=== PATIENT | female | born 2000 | race Caucasian/White ===

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

== ENCOUNTER 2020-03-14 16:12 | Emergency (ER) | payer OTHER ==
--- OUTSIDE RECORDS SUMMARY | 2020-03-14 16:23 | XMS REPORT ---
:2000 Author Organization [facility] t Address [address] [place] [address] Care Team Providers Name Role Phone Delma GABRIEL, Asher Attending Clinician 1, Lab Attending Clinician Unavailable Doctor Unassigned, Name Attending Clinician Unavailable Ivan GABRIEL, Cam Attending Clinician Problems This patient has no known problems. Allergies, Adverse Reactions, Alerts This patient has no known allergies or adverse reactions. Medications This patient has no known medications. Procedures This patient has no known procedures. Encounters Start End Encounter Admission Attending Care Care Encounter Source Date/Time Date/Time Type Type Clinicians Facility Department ID 2020-03-14 2020-03-14 Telephone Delma NVROSA [id number] 00:00:00 00:00:00 [email or web address] [id number] [place] [id number] [facility] [phone] [place] [address] 2020-03-10 2020-03-10 Intermediate Card Tender 1, [facility] [id number] 12:00:08 12:15:08 Visit [place] [id number] [place] [id number] [place] [id number] 2020-03-10 2020-03-10 Orders Doctor DAVID [id number] 00:00:00 00:00:00 Only Unassigned, SYEDA [id number] [place] [facility] [id number] 2020-02-24 2020-02-24 Telephone Roseann Love [facility] [id number] 00:00:00 00:00:00 Cam [place] [id number] [place] [id number] [facility] [id number] [address] 2020-02-23 2020-02-23 Office Roseann Love [facility] [id number] 14:56:11 15:32:21 Visit Cam Franca [id number] [place] [id number] Profess[facility] [phone] [address] 2020-02-23 2020-02-23 Orders Doctor FRANKIE [id number] 00:00:00 00:00:00 Only Unassigned, SYEDA [id number] [place] [facility] [id number] 2020-01-30 2020-01-30 Patient Delma [facility] [id number] 00:00:00 00:00:00 Secure Msg [facility] [id number] [place] [id number] [facility] [phone] [place] [address] [address] Results This patient has no known results.
--- OUTSIDE RECORDS SUMMARY | 2020-03-14 16:24 | XMS REPORT | Summary of Care ---
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 (1 - 2011 Tdap) HPV VACCINES (1 - Female 2011 2-dose series) WELL CARE VISIT: 12-21 YEARS 12/09/2017 12/09/2016 (yearly) CHLAMYDIA SCREENING 10/10/2020 10/10/2019, 06/15/2019 INFLUENZA VACCINE Completed 07/20/2019 MENINGOCOCCAL VACCINE Aged Out No longer eligible based on patient's age to complete this to pic PNEUMOCOCCAL 0-64 YEARS Aged Out No longe r eligible based COMBINED SERIES on patient's age to complete this to pic documented as of this encounter Results Not on filedocumented in this encounter Visit Diagnoses Diagnosis Persistent headaches - Primary Headache Hair loss Alopecia, unspecified Fatigue, unspecified type documented in this encounter Insurance Payer Benefit Plan / Subscriber ID Effective Phone Address T e Group Dates [facility] [id number] 2018-Pres HMO /PPO/POS [facility] ent SHARED SHARED SERVICE SERVICES [facility] MEDICAID OF xxxxxxxxx 2019-Pres [phone] [place] ent [phone] [place] [address] documented as of this encounter Advance Directives Name Relationship Healthcare Agent Relationship Co mmunication Luis Penelope Mother Primary healthcare agent [phone] (Mobile)2017 (Home)[email or web address] Bijan Negrete Father Primary healthcare agent [phone])2016 (Home)[email or web address]
--- OUTSIDE RECORDS SUMMARY | 2020-03-14 16:24 | XMS REPORT | Summary of Care ---
:2000 Author Organization [facility] - Health Address [address] [place] [address] Care Team Providers Name Role Phone Asher Nguyễn MD Primary Care Provider Encounter Details Date Type Department Care Team Description 02/08/2020 Orders Only [facility] Doctor Unassigned, No [address] [facility] Name [place], [place] [id number] [place] [phone] Allergies No Known Allergiesdocumented as of this encounter (statuses as of 02/08/2020) Medications Medication Sig Dispensed Refills Start Date End Date Status vit Take 1 Packet 30 Each 6 06/15/2019 Ac tive 31-vljp-vrmdf-dha by mouth daily. (SELECT-OB + DHA) 29 [...] as of this encounter (statuses as of 02/08/2020) Active Problems Problem Noted Date Persistent headaches 02/07/2020 Hair loss 02/07/2020 Fatigue, unspecified type 02/07/2020 [facility]born [facility], of [place] , [facility] 11/01/2019 delivery 40 weeks gestation of 10/31/2019 Encounter for elective induction of labor 10/31/2019 Medication exposure during first trimester of pregnanc y 07/20/2019 History of depression 07/20/2019 History of anxiety 07/20/2019 Rubella non-immune status, antepartum 06/16/2019 Overview: Address in the . High risk , antepartum 06/15/2019 Low serum HDL 12/11/2016 documented as of this encounter (statuses as of 02/08/2020) Resolved Problems Problem Noted Date Resolved Date 39 weeks gestation of 09/14/2019 10/31/19 20 Primigravida in second trimester 06/15/2019 019 High risk teen in second trimester 06/15/2019 09/14/2019 documented as of this encounter (statuses as of 02/08/2020) Immunizations Name Administration Dates Next Due Influenza [...] Signs Not on filedocumented in this encounter Plan of Treatment Date Type Specialty Care Team Description 02/08/2020 Shift Supervisor Rn Visit Phlebotomy Dejan Nguyễn MD [address] [place] [phone] Pob, Adc Lab Main 02/23/2020 Office Visit Obstetrics & Gynecology David Love MD [address] [place] [phone] 05/31/2020 Office Visit Obstetrics & Gynecology Krystal Rodriguez PA-C [address] [place] [phone] Health Maintenance Due Date Last Done Comments [...] to pic documented as of this encounter Procedures Procedure Name Priority Date/Time Associated Diagnosis Comme nts ASSIGNMENT OF BENEFITS Routine 02/08/2020 3:58 PM CDT documented in this encounter Results Not on filedocumented in this encounter Insurance Payer Benefit Plan / Subscriber ID Effective Phone Address T e Group Dates [facility] [id number] 2018-Pres HMO /PPO/POS [facility] ent SHARED SHARED SERVICE SERVICES [facility] MEDICAID OF xxxxxxxxx 2019-Pres [phone] Medi caid [place] ent [id number] [place] [address] documented as of this encounter Advance Directives Name Relationship Healthcare Agent Relationship Co mmunication Luis Negrete Mother Primary healthcare agent [phone])[phone] (Home)[email or web address] iBjan Negrete Father Primary healthcare agent [phone])[phone] (Home)[email or web address]
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
--- OUTSIDE RECORDS SUMMARY | 2020-03-14 16:25 | XMS REPORT | Summary of Care ---
:2000 Author Organization [facility] Address [address] [place] [address] Care Team Providers Name Role Phone Asher Nguyễn MD Primary Care Provider Reason for Visit Reason Comments LAB WORK Auth/Cert Status Reason Specialty Diagnoses / Procedures Referred By James rockact Referred To Contact Phlebotomy Diagnoses Persistent headaches Hair loss Adc Pob Lab Draw Procedures ANTI-NUCLEAR ANTIBODY SCREEN DEHYDROEPIANDROSTERONE SULFATE FOLLICLE STIMULATING HORMONE Professional Office Building [address] , [address] [place] [address] Phone: Fax: Encounter Details Date Type Department Care Team Description 02/08/2020 Tractor Technician Visit [facility] Dejan Nguyễn MD [address] [place] [address] [place] [address] Hair loss; Professional Office Pob, Adc Lab Main Persistent headaches; Building Phlebotomy Fatigue, unspecified type Lab Professional Office Building [address] , [address] [place] [address] Allergies No Known Allergiesdocumented as of this encounter (statuses as of 02/08/2020) Medications Medication Sig Dispensed Refills Start Date End Date Status vit Take 1 Packet 30 Each 6 06/15/2019 Ac tive 38-qnub-bvyje-dha by mouth daily. (SELECT-OB + DHA) 29 [...] Liveborn , of [place] , born in [facility] by vaginal 11/01/2019 delivery 40 weeks [...] Visit Obstetrics & Gynecology David Love MD [address] [place] [address] [place] [address] 15 05/31/2020 Office Visit Obstetrics & Gynecology Krystal Rodriguez PA-C [address] [address] [phone] Name Type Priority Associated Diagnoses Date/Ti me LUTEINIZING HORMONE SERUM LAB Routine Hair loss 4:12 PM CDT THYROID PEROXIDASE (TPO) AB LAB Routine Per sistent headaches 02/08/2020 4:12 PM Hair loss CDT Fatigue, unspecified type FREE T4 LAB Routine Persistent heada ches 02/08/2020 4:12 PM Hair loss CDT Fatigue, unspecified type FREE T3 LAB Routine Persistent heada ches 02/08/2020 4:12 PM Hair loss CDT Fatigue, unspecified type TESTOSTERONE LAB Routine Hair loss 02/08/2020 4:1 2 PM CDT PROLACTIN LAB Routine Hair loss 02/08/2020 4:1 2 PM CDT THYROGLOBULIN AB LAB Routine Persistent hea daches 02/08/2020 4:12 PM Hair loss CDT Fatigue, unspecified type FOLLICLE STIMULATING HORMONE LAB Routine Hair loss 02/08/2020 4:12 PM CDT DEHYDROEPIANDROSTERONE SULFATE LAB Routine Hair loss 02/08/2020 4:12 PM CDT ANTI-NUCLEAR ANTIBODY SCREEN LAB Routine Per sistent headaches 02/08/2020 4:12 PM Hair loss CDT Fatigue, unspecified type CBC WITH DIFF LAB Routine Persistent heada ches 02/08/2020 4:10 PM Hair loss CDT Fatigue, unspecified type COMP. METABOLIC PANEL (35242) LAB Routine Pe rsistent headaches 02/08/2020 4:10 PM Hair loss CDT Fatigue, unspecified type THYROID STIMULATING HORMONE LAB Routine Pers istent headaches 02/08/2020 4:10 PM Hair loss CDT Fatigue, unspecified type GLYCOSYLATED HEMOGLOBIN (A1C) LAB Routine Pe rsistent headaches 02/08/2020 4:10 PM Fatigue, unspecified CDT type VITAMIN B12, LEVEL LAB Routine Hair loss 02/08/2020 4:10 PM Fatigue, unspecified CDT type MAGNESIUM LAB Routine Fatigue, unspecified 020 4:10 PM type CDT FOLATE LAB Routine Hair loss 02/08/2020 4:10 PM Fatigue, unspecified CDT type IRON PANEL LAB Routine Persistent heada ches 02/08/2020 4:10 PM Hair loss CDT Fatigue, unspecified type FERRITIN SERUM LAB Routine Persistent heada ches 02/08/2020 4:10 PM Hair loss CDT Fatigue, unspecified type CBC WITH DIFFERENTIAL LAB Routine Persistent headaches 02/08/2020 4:10 PM Hair loss CDT Fatigue, unspecified type Health Maintenance Due Date Last Done [...] filedocumented in this encounter Visit Diagnoses Diagnosis Hair loss Alopecia, unspecified Persistent headaches Headache Fatigue, unspecified type documented in this encounter Insurance Payer Benefit Plan / Subscriber ID Effective Phone Address T e Group Dates [facility] [id number] 2018-Pres HMO /PPO/POS [facility] ent SHARED SHARED SERVICE SERVICES [facility] MEDICAID OF xxxxxxxxx 2019-Pres [phone] Medi ca[address] [place] ent [id number] [place] [address] documented as of this encounter Advance Directives Name Relationship Healthcare Agent Relationship Co mmunication Luis Penelope Mother Primary healthcare agent [phone] (Home)[email or web address] Bijan Negrete Father Primary healthcare agent [phone] (Home)[email or web address]
--- OUTSIDE RECORDS SUMMARY | 2020-03-14 16:25 | XMS REPORT | Summary of Care ---
:2000 Author Organization [facility] Address [address] [place] [address] Care Team Providers Name Role Phone Asher Nguyễn MD Primary Care Provider Encounter Details Date Type Department Care Team Description 02/09/2020 Patient Secure [facility] Pediatric Adolph Nguyễn, and Adult Primary Care- MD Schulte [address] [facility] , [place], [place] [address] [address] [place] [address] [phone] Allergies No Known Allergiesdocumented as of this encounter (statuses as of 02/09/2020) Medications Medication Sig Dispensed Refills Start Date End Date Status vit Take 1 Packet 30 Each 6 06/15/2019 Ac tive 99-ywft-uvanc-dha by mouth daily. (SELECT-OB + DHA) 29 [...] as of this encounter (statuses as of 02/09/2020) Active Problems Problem Noted Date Persistent headaches 02/07/2020 Hair loss 02/07/2020 Fatigue, unspecified type 02/07/2020 Liveborn infant, of hayden , [facility] by vaginal 11/01/2019 delivery 40 weeks gestation of 10/31/2019 Encounter for elective induction of labor 10/31/2019 Medication exposure during first trimester of pregnanc y 07/20/2019 History of depression 07/20/2019 History of anxiety 07/20/2019 Rubella non-immune status, antepartum 06/16/2019 Overview: Address in the . High risk , antepartum 06/15/2019 Low serum HDL 12/11/2016 documented as of this encounter (statuses as of 02/09/2020) Resolved Problems Problem Noted Date Resolved Date 39 weeks gestation of 09/14/2019 10/31/19 20 Primigravida in second trimester 06/15/2019 019 High risk teen in second trimester 06/15/2019 09/14/2019 documented as of this encounter (statuses as of 02/09/2020) Immunizations Name Administration Dates Next Due Influenza [...] Visit Obstetrics & Gynecology David Love MD [address] [place] [address] 15 05/31/2020 Office Visit Obstetrics & Gynecology Krystal Rodriguez PA-C [address] [place] [address] [phone] Health Maintenance Due Date Last Done [...] on patient's age to complete this to [facility] documented as of this encounter Results Not on filedocumented in this encounter Insurance Payer Benefit Plan / Subscriber ID Effective Phone Address T e Group Dates [facility] [id number] 2018-Pres HMO /PPO/POS [facility] ent SHARED SHARED SERVICE SERVICES [facility] MEDICAID OF xxxxxxxxx 2019-Pres [phone]i caid [place] ent [id number] [place] [address] documented as of this encounter Advance Directives Name Relationship Healthcare Agent Relationship Co mmunication Luis Negrete Mother Primary healthcare agent [phone])[phone] (Home)[email or web address] Bijan Negrete Father Primary healthcare agent [phone])[phone] (Home)[email or web address]
--- OUTSIDE RECORDS SUMMARY | 2020-03-14 16:26 | XMS REPORT | Summary of Care ---
:2000 Author Organization [facility] - [facility] Address [address] [place] [address] Care Team Providers Name Role Phone Asher Nguyễn MD Primary Care Provider Encounter Details Date Type Department Care Team Description 02/09/2020 Patient Secure [facility] Pediatric Adolph Nguyễn, and Adult Primary Care- MD Schulte [address] [facility] , [place], [place] [address] [address] [place] [address] [phone] Allergies No Known Allergiesdocumented as of this encounter (statuses as of 02/09/2020) Medications Medication Sig Dispensed Refills Start Date End Date Status vit Take 1 Packet 30 Each 6 06/15/2019 Ac tive 28-vqof-ukoqu-dha by mouth daily. (SELECT-OB + DHA) 29 [...] infant, of hayden , born in [facility] by vaginal 11/01/2019 delivery 40 weeks gestation [...] Visit Obstetrics & Gynecology David Love MD [address] [place] [address] 15 05/31/2020 Office Visit Obstetrics & Gynecology Krystal Rodriguez PA-C [address] [place] [address] [phone] Health Maintenance Due Date Last Done [...] on patient's age to complete this to the medical center documented as of this encounter Results Not on filedocumented in this encounter Insurance Payer Benefit Plan / Subscriber ID Effective Phone Address T e Group Dates [facility] [id number] 2018-Pres HMO /PPO/POS [facility] ent SHARED SHARED SERVICE SERVICES [facility] MEDICAID OF xxxxxxxxx 2019-Pres [phone] [address] Medi caid [place] ent [id number] [place] [address] documented as of this encounter Advance Directives Name Relationship Healthcare Agent Relationship Co mmunication Luis Negrete Mother Primary healthcare agent [phone])[phone] (Home)[email or web address] Bijan Negrete Father Primary healthcare agent [phone])[phone] (Home)[email or web address]
--- OUTSIDE RECORDS SUMMARY | 2020-03-14 16:26 | XMS REPORT | Summary of Care ---
:2000 Author Organization [facility] Address [address] [place] [address] Care Team Providers Name Role Phone Asher Nguyễn MD Primary Care Provider Reason for Visit Reason Comments NEXPLANON Insertion Encounter Details Date Type Department Care Team Description 02/23/2020 Office Visit [facility] LoveRoseann MD Nexplanon insertion (Primary Dx); Healthcare- [address] in place; [address] [place] [address] [employer]eria Encounter for female control [address] [place], [place] [address] [phone] Allergies No Known Allergiesdocumented as of this encounter (statuses as of 02/23/2020) Medications Medication Sig Dispensed Refills Start Date End Date Status vitamin Take 1 100 tablet 3 11/02/2019 A ctive w/FA tablet by tabletIndications: mouth daily. High risk , antepartum, Rubella non-immune status, antepartum, Medication exposure during first trimester of , History of depression, History of anxiety, 40 weeks gestation of , Encounter for elective induction of labor, Liveborn , of hayden , born in hospital by vaginal delivery vit Take 1 30 Each 6 06/15/2019 02/23/20 Discon tinued 40-yzns-sqpao-dha Packet by 20 (T herapy (SELECT-OB + DHA) 29 mouth daily. completed) mg iron-1 mg -250 mg combo packIndications: High risk , antepartum docusate calcium 240 Take 1 60 capsule 1 11/02/2019 0 Discontinued mg capsule by 20 (Therapy capsuleIndications: mouth once completed) High risk , daily as antepartum, Rubella needed for non-immune status, Constipation antepartum, . Medication exposure during first trimester of , History of depression, History of anxiety, 40 weeks gestation of , Encounter for elective induction of labor, Liveborn infant, of hay[place] , born in hospital by vaginal delivery ferrous sulfate 325 Take 1 60 tablet 2 11/02/2019 02/23/20 Discontinued mg (65 mg iron) tablet by 20 (The rapy tabletIndications: mouth 2 c ompleted) High risk , (two) times antepartum, Rubella daily. non-immune status, antepartum, Medication exposure during first trimester of , History of depression, History of anxiety, 40 weeks gestation of , Encounter for elective induction of labor, Liveborn infant, of hay[place] , born in hospital by vaginal delivery ibuprofen 600 mg Take 1 30 tablet 1 11/02/2019 02/23/20 Di scontinued tabletIndications: tablet by 20 ( Therapy High risk , mouth every completed) antepartum, Rubella 6 (six) non-immune status, hours as antepartum, needed Medication exposure (Pain). Take during first with food or trimester of milk. , History of depression, History of anxiety, 40 weeks gestation of , Encounter for elective induction of labor, Liveborn , of hayden , born in hospital by vaginal delivery azithromycin 250 mg Take 500 mg 6 tablet 0 12/29/2019 0 Discontinued tabletIndications: day 1, then 20 (Therapy Acute pharyngitis 250 mg days completed) due to other 2 to 5. specified organisms cyclobenzaprine 5 mg Take 1 30 tablet 0 02/07/2020 02/23/20 Discontinued tabletIndications: tablet by 20 ( Therapy Persistent headaches mouth 3 completed) (three) times daily as needed (tension headache). Hospital, Clinic, or Other Ordered Dose Route Frequency Start Date End Date Status Facility Administered Medication etonogestrel (NEXPLANON) 68 mg Sdrm ONCE NOW 02/23/2020 050 04/2020 Ended implant 68 mg documented as of this encounter (statuses as of 02/23/2020) Active Problems Problem Noted Date Nexplanon in place 02/23/2020 Abnormal liver function test 02/11/2020 B12 deficiency 02/11/2020 Overview: B12 at suboptimal level of <400 Hair loss 02/07/2020 Fatigue, unspecified type 02/07/2020 History of depression 07/20/2019 History of anxiety 07/20/2019 Rubella non-immune status, antepartum 06/16/2019 Overview: Address in the . Low serum HDL 12/11/2016 documented as of this encounter (statuses as of 02/23/2020) Resolved Problems Problem Noted Date Resolved Date Persistent headaches 02/07/2020 02/23/2020 Liveborn , of hayden , born in hospital by 11/01/2019 02/23/2020 vaginal delivery 40 weeks gestation of 10/31/2019 02/23/20 20 Encounter for elective induction of labor 10/31/2019 02/23/2020 39 weeks gestation of 09/14/2019 10/31/19 20 Medication exposure during first trimester of 11/201802/23/2020 High risk , antepartum 06/15/2019 02/23/20 20 Primigravida in second trimester 06/15/2019 019 High risk teen in second trimester 06/15/2019 09/14/2019 documented as of this encounter (statuses as of 02/23/2020) Immunizations Name Administration Dates Next Due Influenza [...] Travel End No recent travel history available. COVID-19 Exposure Response Date Recorded In the last month, have you been in contact with No / Unsure 02/23/2020 2:55 PM CDT someone who was confirmed or suspected to have Coronavirus / COVID-19? documented as of this encounter Last Filed Vital Signs Vital Sign Reading Time Taken Comments Blood Pressure 116/73 02/23/2020 3:34 PM CDT Pulse 93 02/23/2020 3:34 PM CDT Temperature 37 C (98.6 F) 02/23/2020 3:34 PM CDT Respiratory Rate 18 02/23/2020 3:34 PM CDT Oxygen Saturation - - Inhaled Oxygen Concentration - - Weight 60.1 kg (132 lb 9.6 oz) 02/23/2020 3:34 PM CDT Height 160 cm (5' 3") 02/23/2020 3:34 PM CDT Body Mass Index 23.49 02/23/2020 3:34 PM CDT documented in this encounter Progress Notes Roseann Love MD - 02/23/2020 3:00 PM CDTNexplanon PLACEMENT PROCEDURE NOTE Preoperative Diagnoses: Desires LARC The risks, benefits and alternatives were discussed. The patient voiced her understanding. She wished to proceed and an informed consent was obtained. Patient has been identified by name and and will be undergoing Nexplanon placement. Patient is right handed. Patient, procedure and site have been confirmed by the following clinicians: Dr. Love. Timeout performed by Dr. Love Procedure: The patient is placed on the exam table in a supine position. Her non-dominant arm is flexed at the elbow and externally rotated so her wrist is parallel to her ear and her hand is positioned next to her head. The inner aspect of the upper arm is marked at 8cm and 12cm superior to the medial epicondyle, in the mid-portion of the upper arm, parallel with the humerus. The surface was cleaned with alcohol swab x 2. The insertion area is injected subcutaneously with 5 ccs of lidocaine 1%without epinephrine along the planned insertion tunnel. The surface of the inner arm is then prepped with betadine x 3. The Nexplanon insertion needle is then inserted at 8cm superior to the medial epicondyle, using counter traction and lifting the skin to keep the needle in the subdermal connective tissue. The needle is advanced to 12 cm above the medial epicondyle. The cannula is then retracted and needle is removed. There is minimal bleeding from the insertion site. The Nexplanon capsule is easily palpable by myself and the patient. Sterile gauze and a pressure dressing is placed over the removal site. The patient tolerated the procedure well and there were no complications. Post-procedure instructions given. Patient verbalized understanding. Findings Successful placement of Nexplanon Assessment Successful placement of Nexplanon Plan Nexplanon insertion (primary encounter diagnosis) Comment: Reviewed counseling as below: I counseled the patient about Nexplanon. It is the most effective form of contraception. After insertion, there is a chance the patient may experience amenorrhea or infrequent, frequent, or prolongedbleeding. There is a >10% chance of having bleeding or spotting between menstrual cycles. Otherpossible side effects include GI issues, headache, acne, breast pain, vaginitis, and weight gain. Complications related to implant insertion occur in about 1% of patients and 1.7% of patients have complications associated with removal. Insertion complications include pain, slight bleeding, hematoma formation, infection, difficult insertion, migration of the implant (implants have been found within the vasculature or chest and need surgery for removal), and unrecognized insertion. Removal may be complicated by breakage of the implant and unable to palpate or locate the implant because of deep insertion requiring additional imaging and even surgery. Fertility returns rapidly after discontinuation of the implants. Patient expressed understanding of risks and desires to proceed. Negative UPT and no unprotected intercourse. Consents signed. Nexplanon inserted as above. Back up method of control recommended for 7 days. Wound care reviewed. Plan: POCT TEST, Etonogestrel (NEXPLANON) implant [address] Comment: as above Plan: Etonogestrel (NEXPLANON) implant 68 mg Encounter for female control Comment: as above Plan: Etonogestrel (NEXPLANON) implant 68 mg Return to clinic PRN problem or 1 year wwe. Discussed treatment options. Medications as ordered. Reviewed patient instructions and provided printed copy. nexplanon Lot #: [id number] Year removal date: 2022 Patient palpated implant: Yes Roseann Love MD #[id number] 02/23/2020 5:46 PM documented in this encounter Plan of Treatment Date Type Specialty Care Team Description 05/31/2020 Office Visit Obstetrics & Gynecology Krystal Rodriguez PA-C [address] [place] [address] [phone] Health Maintenance Due Date Last Done [...] Name Priority Date/Time Associated Diagnosis Comme nts POCT TEST Routine 02/23/2020 Nexplanon insertion R esults for this procedure are i n the results section . documented in this encounter Results POCT TEST (02/23/2020) Pathologist Sig nature POCT PREG Negative On board controls acceptable Yes with C Line POCT PREG LOT # POCT PREG TEST DATE Specimen Urine - URINE, CLEAN CATCH documented in this encounter Visit Diagnoses Diagnosis Nexplanon insertion - Primary Insertion of implantable subdermal contr aceptive Nexplanon in place Presence of subdermal contraceptive jamari ce Encounter for female control Other specified contraceptive management documented in this encounter Administered Medications Medication Order MAR Action Action Date Dose Rate Site etonogestrel (NEXPLANON) Given 02/23/2020 5:47 PM CDT 68 mg Left Arm implant 68 mg 68 mg, Subdermal, ONCE NOW, 1 dose, Lynette 02/23/20 at 1900, Routine, Use approved by: [employer] documented in this encounter Insurance Payer Benefit Plan / Subscriber ID Effective Phone Address T ype Group Dates [facility] [id number] 2018-Pres HMO /PPO/POS [facility] ent SHARED SHARED SERVICE SERVICES [facility] MEDICAID OF xxxxxxxxx 2019-Pres [phone]i ca[address] [place] ent [id number] [facility] [place] [address] documented as of this encounter Advance Directives Name Relationship Healthcare Agent Relationship Co mmunication Luis Penelope Mother Primary healthcare agent (Mobile)2017 (Home)[email or web address] Bijan Negrete Father Primary healthcare agent (Mobile)2016 (Home)[email or web address]
--- OUTSIDE RECORDS SUMMARY | 2020-03-14 16:26 | XMS REPORT | Summary of Care ---
:2000 Author Organization [facility] Address [address] [place] [address] Care Team Providers Name Role Phone Asher Nguyễn MD Primary Care Provider Reason for Visit Reason Comments Results Encounter Details Date Type Department Care Team Description 02/13/2020 Telephone [facility] Family Medicine Bryce Watts MD Results - [place] [address] [facility] [place] [address] [place] [address] [phone] Allergies No Known Allergiesdocumented as of this encounter (statuses as of 02/13/2020) Medications Medication Sig Dispensed Refills Start Date End Date Status vit Take 1 Packet 30 Each 6 06/15/2019 Ac tive 31-tnyd-dmfkz-dha by mouth daily. (SELECT-OB + DHA) 29 [...] as of this encounter (statuses as of 02/13/2020) Active Problems Problem Noted Date Abnormal liver function test 02/11/2020 B12 deficiency 02/11/2020 Overview: B12 at suboptimal level of <400 Persistent headaches 02/07/2020 Hair loss 02/07/2020 Fatigue, unspecified type 02/07/2020 [facility] [place] [facility] 11/01[facility]2019 delivery 40 weeks gestation of 10/31/2019 Encounter for elective induction of labor 10/31/2019 Medication exposure during first trimester of pregnanc y 07/20/2019 History of depression 07/20/2019 History of anxiety 07/20/2019 Rubella non-immune status, antepartum 06/16/2019 Overview: Address in the . High risk , antepartum 06/15/2019 Low serum HDL 12/11/2016 documented as of this encounter (statuses as of 02/13/2020) Resolved Problems Problem Noted Date Resolved Date 39 weeks gestation of 09/14/2019 10/31/19 20 Primigravida in second trimester 06/15/2019 019 High risk teen in second trimester 06/15/2019 09/14/2019 documented as of this encounter (statuses as of 02/13/2020) Immunizations Name Administration Dates Next Due Influenza [...] been in contact with No / Unsure 02/08/2020 3:58 PM CDT someone who was confirmed or suspected to have Coronavirus / COVID-19? documented as of this encounter Last Filed Vital Signs Not on filedocumented in this encounter Plan of Treatment Date Type Specialty Care Team Description 02/23/2020 Office Visit Obstetrics & Gynecology David Love MD [address] [place] [address] [place] [address] 15 05/31/2020 Office Visit Obstetrics & Gynecology Krystal Rodriguez PA-C [address] [place] [address] [phone] Health Maintenance Due Date Last Done [...] Effective Phone Address T ype Group Dates [facility] [id number] 2018-Pres HMO /PPO/POS [facility] ent SHARED SHARED SERVICE SERVICES [facility] MEDICAID OF xxxxxxxxx 2019-Pres [phone] [address] Medi caid [place] ent [id number] [place] [address] documented as of this encounter Advance Directives Name Relationship Healthcare Agent Relationship Co mmunication Luis Negrete Mother Primary healthcare agent [phone] (Home)[email or web address] Bijan Negrete Father Primary healthcare agent [phone] (Home)[email or web address]
--- OUTSIDE RECORDS SUMMARY | 2020-03-14 16:27 | XMS REPORT | Summary of Care ---
:2000 Author Organization [facility] Address [address] [place] [address] Care Team Providers Name Role Phone Asher Nguyễn MD Primary Care Provider Reason for Visit Reason Comments Rx Concern/Question nexplanon bandaging uncomfor table Encounter Details Date Type Department Care Team Description 02/24/2020 Telephone [facility] Women's LoveRoseann MD Rx Concern/Question Healthcare- [address] (nexplanon bandaging [address] [place] [address], uncomdavid) [address] [address] [phone] Allergies No Known Allergiesdocumented as of this encounter (statuses as of 02/24/2020) Medications Medication Sig Dispensed Refills Start Date End Date Status vitamin w/FA Take 1 tablet by 100 tablet 3 11/02/2019 Active tabletIndications: mouth daily. High risk , antepartum, Rubella non-immune status, antepartum, Medication exposure during first trimester of , History of depression, History of anxiety, 40 weeks gestation of , Encounter for elective induction of labor, Liveborn infant, of hay[place] , born in hospital by vaginal delivery documented as of this encounter (statuses as of 02/24/2020) Active Problems Problem Noted Date Nexplanon in place 02/23/2020 Abnormal liver function test 02/11/2020 B12 deficiency 02/11/2020 Overview: B12 at suboptimal level of <400 Hair loss 02/07/2020 Fatigue, unspecified type 02/07/2020 History of depression 07/20/2019 History of anxiety 07/20/2019 Rubella non-immune status, antepartum 06/16/2019 Overview: Address in the . Low serum HDL 12/11/2016 documented as of this encounter (statuses as of 02/24/2020) Resolved Problems Problem Noted Date Resolved Date [...] as of this encounter (statuses as of 02/24/2020) Immunizations Name Administration Dates Next Due Influenza [...] Obstetrics & Gynecology Krystal Rodriguez PA-C [address] [place] [address] [phone] Health Maintenance Due Date Last Done [...] Effective Phone Address T e Group Dates [facility] [id number] 2018-Pres HMO /PPO/POS [facility] ent SHARED SHARED SERVICE SERVICES [facility] MEDICAID OF xxxxxxxxx 2019-Pres [phone] Medi caid [place] ent [id number] [place] [address] documented as of this encounter Advance Directives Name Relationship Healthcare Agent Relationship Co mmunication Luis Negrete Mother Primary healthcare agent [phone])[phone] (Home)[email or web address] Bijan Negrete Father Primary healthcare agent [phone] (Mobile)2016 (Home)[email or web address]
--- OUTSIDE RECORDS SUMMARY | 2020-03-14 16:27 | XMS REPORT | Summary of Care ---
:2000 Author Organization [facility] - Health Address [address] [place] [address] Care Team Providers Name Role Phone Asher Nguyễn MD Primary Care Provider Encounter Details Date Type Department Care Team Description 03/10/2020 Orders Only [facility] Doctor Unassigned, No [address] [facility] Name [place], [place] [id number] [place] [address] Allergies No Known Allergiesdocumented as of this encounter (statuses as of 03/10/2020) Medications Medication Sig Dispensed Refills Start Date [...] as of this encounter (statuses as of 03/10/2020) Active Problems Problem Noted Date Nexplanon in place 02/23/2020 Abnormal liver function test 02/11/2020 B12 deficiency 02/11/2020 Overview: B12 at suboptimal level of <400 Hair loss 02/07/2020 Fatigue, unspecified type 02/07/2020 History of depression 07/20/2019 History of anxiety 07/20/2019 Rubella non-immune status, antepartum 06/16/2019 Overview: Address in the . Low serum HDL 12/11/2016 documented as of this encounter (statuses as of 03/10/2020) Resolved Problems Problem Noted Date Resolved Date [...] as of this encounter (statuses as of 03/10/2020) Immunizations Name Administration Dates Next Due Influenza [...] Visit Obstetrics & Gynecology Krystal Rodriguez PA-C [address] [place] [address] 15-4112 Health Maintenance Due Date Last Done [...] Diagnosis Comme nts ASSIGNMENT OF BENEFITS Routine 03/10/2020 11:56 AM CDT documented in this encounter Results Not on filedocumented in this encounter Insurance Payer Benefit Plan / Subscriber ID Effective Phone Address T e Group Dates [facility] [id number] 2018-Pres HMO /PPO/POS [facility] ent SHARED SHARED SERVICE SERVICES [facility] MEDICAID OF xxxxxxxxx 2019-Pres [phone] [place] ent [id number] [place] [address] documented as of this encounter Advance Directives Name Relationship Healthcare Agent Relationship Co mmunication Luis Negrete Mother Primary healthcare agent [phone])[phone] (Home)[email or web address] Bijan Negrete Father Primary healthcare agent [phone] (Home)[email or web address]
--- OUTSIDE RECORDS SUMMARY | 2020-03-14 16:27 | XMS REPORT | Summary of Care ---
:2000 Author Organization [facility] - Health Address [address] [place] [address] Care Team Providers Name Role Phone Asher Nguyễn MD Primary Care Provider Encounter Details Date Type Department Care Team Description 02/23/2020 Orders Only [facility] Doctor Unassigned, No 301 [facility] Name [place], [place] [id number] [address] Allergies No Known Allergiesdocumented as of this encounter (statuses as of 02/28/2020) Medications Medication Sig Dispensed Refills Start Date [...] as of this encounter (statuses as of 02/28/2020) Active Problems Problem Noted Date Nexplanon in place 02/23/2020 Abnormal liver function test 02/11/2020 B12 deficiency 02/11/2020 Overview: B12 at suboptimal level of <400 Hair loss 02/07/2020 Fatigue, unspecified type 02/07/2020 History of depression 07/20/2019 History of anxiety 07/20/2019 Rubella non-immune status, antepartum 06/16/2019 Overview: Address in the . Low serum HDL 12/11/2016 documented as of this encounter (statuses as of 02/28/2020) Resolved Problems Problem Noted Date Resolved Date [...] as of this encounter (statuses as of 02/28/2020) Immunizations Name Administration Dates Next Due Influenza [...] Visit Obstetrics & Gynecology Krystal Rodriguez PA-C [address] [place] [address] [phone] Health Maintenance Due Date Last Done [...] Name Priority Date/Time Associated Diagnosis Comme nts CONSENT FOR CONTRACEPTION Routine 02/23/2020 12:01 AM CDT documented in this encounter Results Not on filedocumented in this encounter Insurance Payer Benefit Plan / Subscriber ID Effective Phone Address T ype Group Dates [facility] [id number] 2018-Pres HMO /PPO/POS [facility] ent SHARED SHARED SERVICE SERVICES [facility] MEDICAID OF xxxxxxxxx 2019-Pres [phone] ca[address] [place] ent [id number] [place] [address] documented as of this encounter Advance Directives Name Relationship Healthcare Agent Relationship Co mmunication Luis Negrete Mother Primary healthcare agent [phone] (Mobile)[phone] (Home)[email or web address] Bijan Penelope Father Primary healthcare agent [phone] (Home)[email or web address]
--- OUTSIDE RECORDS SUMMARY | 2020-03-14 16:27 | XMS REPORT | Summary of Care ---
:2000 Author Organization [facility] - [facility] Address [address] [place] [address] Care Team Providers Name Role Phone Asher Nguyễn MD Primary Care Provider Reason for Visit Reason Comments NEXPLANON Insertion Encounter Details Date Type Department Care Team Description 02/23/2020 Office Visit [facility] Women's LoveRoseann MD Nexplanon insertion (Primary Dx); Healthcare- [address] in place; [address] [place] [address] Taqueria Encounter for female control [address] [place], [place] [phone] [phone] Allergies No Known Allergiesdocumented as of this [...] 30 Each 6 06/15/2019 02/23/20 Discon tinued [id number] Packet by 20 (T herapy (SELECT-OB + [...] and provided printed copy. nexplanon Lot #: [id number] Year removal date: 2022 Patient palpated implant: Yes Roseann Love MD #[id number] 02/23/2020 5:46 PM documented in this encounter Plan of Treatment Date Type Specialty Care Team Description 05/31/2020 Office Visit Obstetrics & Gynecology Krystal Rodriguez PA-C [address] [place] [address] [phone] Health Maintenance Due Date Last Done [...] 02/23/20 at 1900, Routine, Use approved by: [employer] documented in this encounter Insurance Payer Benefit Plan / Subscriber ID Effective Phone Address T ype Group Dates [facility] [id number] 2018-Pres HMO /PPO/POS [facility] ent SHARED SHARED SERVICE SERVICES [facility] MEDICAID OF xxxxxxxxx 2019-Pres [phone] ca[address] [place] ent [id number] [place] [address] documented as of this encounter Advance Directives Name Relationship Healthcare Agent Relationship Co mmunication Luis Penelope Mother Primary healthcare agent (Mobile)2017 (Home)[email or web address] Bijan Negrete Father Primary healthcare agent (Mobile)2016 (Home)[email or web address]
--- OUTSIDE RECORDS SUMMARY | 2020-03-14 16:27 | XMS REPORT | Summary of Care ---
:2000 Author Organization [facility] - [facility] Address [address] [place] [address] Care Team Providers Name Role Phone Asher Nguyễn MD Primary Care Provider Encounter Details Date Type Department Care Team Description 01/30/2020 [facility] Family Jose Nguyễn, [facility] MD [facility] [address] [address] [place], [place] [phone] Allergies No Known Allergiesdocumented as of this encounter (statuses as of 03/03/2020) Medications Medication Sig Dispensed Refills Start Date [...] as of this encounter (statuses as of 03/03/2020) Active Problems Problem Noted Date Nexplanon in place 02/23/2020 Abnormal liver function test 02/11/2020 B12 deficiency 02/11/2020 Overview: B12 at suboptimal level of <400 Hair loss 02/07/2020 Fatigue, unspecified type 02/07/2020 History of depression 07/20/2019 History of anxiety 07/20/2019 Rubella non-immune status, antepartum 06/16/2019 Overview: Address in the . Low serum HDL 12/11/2016 documented as of this encounter (statuses as of 03/03/2020) Resolved Problems Problem Noted Date Resolved Date [...] as of this encounter (statuses as of 03/03/2020) Immunizations Name Administration Dates Next Due Influenza [...] Obstetrics & Gynecology Krystal Rodriguez PA-C [address] [address] 15-4112 Health Maintenance Due Date Last Done [...] Effective Phone Address T e Group Dates [facility] [id number] 2018-Pres HMO /PPO/POS [facility] ent SHARED SHARED SERVICE SERVICES [facility] MEDICAID OF xxxxxxxxx 2019-Pres [phone] [place] ent [phone] [place] [address] documented as of this encounter Advance Directives Name Relationship Healthcare Agent Relationship Co mmunication Luis Negrete Mother Primary healthcare agent [phone] (Mobile)[phone] (Home)[email or web address] Bijan Negrete Father Primary healthcare agent [phone] (Mobile)[phone] (Home)[email or web address]
--- OUTSIDE RECORDS SUMMARY | 2020-03-14 16:28 | XMS REPORT | Summary of Care ---
:2000 Author Organization [facility] Address [address] [place] [address] Care Team Providers Name Role Phone Asher Nguyễn MD Primary Care Provider Reason for Visit Reason Comments Assessment Triage Encounter Details Date Type Department Care Team Description 03/14/2020 Telephone [facility] Family Bryce Nguyễn A ssessment (Triage ) [facility] [address] [address] [place], [place] [phone] [phone] Allergies No Known Allergiesdocumented as of this encounter (statuses as of 03/14/2020) Medications Medication Sig Dispensed Refills Start Date [...] as of this encounter (statuses as of 03/14/2020) Active Problems Problem Noted Date Nexplanon in place 02/23/2020 Abnormal liver function test 02/11/2020 B12 deficiency 02/11/2020 Overview: B12 at suboptimal level of <400 Hair loss 02/07/2020 Fatigue, unspecified type 02/07/2020 History of depression 07/20/2019 History of anxiety 07/20/2019 Rubella non-immune status, antepartum 06/16/2019 Overview: Address in the . Low serum HDL 12/11/2016 documented as of this encounter (statuses as of 03/14/2020) Resolved Problems Problem Noted Date Resolved Date Persistent headaches 02/07/2020 02/23/2020 Liveborn infant, of [place] , born in [...] as of this encounter (statuses as of 03/14/2020) Immunizations Name Administration Dates Next Due Influenza [...] Visit Obstetrics & Gynecology Krystal Rodriguez PA-C [address] [place] [address] 15-4112 [phone] Health Maintenance Due Date Last Done Comments [...] Effective Phone Address T ype Group Dates [facility] [id number] 2018-Pres HMO /PPO/POS [facility] ent SHARED SHARED SERVICE SERVICES [facility] MEDICAID OF xxxxxxxxx 2019-Pres [phone] ca[address] [place] ent [id number] [place] [address] documented as of this encounter Advance Directives Name Relationship Healthcare Agent Relationship Co mmunication Luis Negrete Mother Primary healthcare agent [phone] (Mobile)[phone] (Home)[email or web address] Bijan Negrete Father Primary healthcare agent [phone] (Mobile)[phone] (Home)[email or web address]
--- OUTSIDE RECORDS SUMMARY | 2020-03-14 16:28 | XMS REPORT | Summary of Care ---
:2000 Author Organization [facility] Address [address] [place] [address] Care Team Providers Name Role Phone Asher Nguyễn MD Primary Care Provider Reason for Visit Reason Comments LAB WORK Encounter Details Date Type Department Care Team Description 03/10/2020 Groundman/Lineman Visit [facility] Dejan Nguyễn MD [address] [place] [address] [place] [address] Abnormal liver Phlebotomy [facility] Lab function test Lab-[address] [place] [phone] Allergies No Known Allergiesdocumented as of this [...] Visit Obstetrics & Gynecology Krystal Rodriguez PA-C [address] [place] [address] [phone] Name Type Priority Associated Diagnoses Date/Ti me HEPATIC FUNCTION PANEL LAB Routine Abnormal liver fun ction 03/10/2020 12:03 PM CDT (42026) (ALB,T.PRO,BILI test T,BU/BC,ALT,AST,ALK PHOS) Health Maintenance Due Date Last Done Comments [...] filedocumented in this encounter Visit Diagnoses Diagnosis Abnormal liver function test Other abnormal blood chemistry documented in this encounter Insurance Payer Benefit Plan / Subscriber ID Effective Phone Address T ype Group Dates [facility] [id number] 2018-Pres HMO /PPO/POS [facility] ent SHARED SHARED SERVICE SERVICES [facility] MEDICAID OF xxxxxxxxx 2019-Pres [phone] ca[address] [place] ent [id number] [place] [address] documented as of this encounter Advance Directives Name Relationship Healthcare Agent Relationship Co mmunication Luis Negrete Mother Primary healthcare agent [phone] (Mobile)2017 (Home)[email or web address] Bijan Negrete Father Primary healthcare agent [phone] (Home)[email or web address]
[2020-03-14] MEDS ORDERED: NA CHLORIDE 0.9% 2,000 ML ONE (19:24)
[2020-03-14 19:58] LABS: Urine Amorphous Sediment 1+ /HPF (NONE SEEN); Urine Bacteria <20 /HPF (<20); Urine Culture Reflex Order NOT NEEDED; Urine Mucus 1+ /HPF (NONE SEEN)
[2020-03-14 19:58] LABS: Urine Blood TRACE (NEG); Urine Glucose NEGATIVE (NEG); Urine Protein NEGATIVE (NEG); Urine Specific Gravity >1.030 (1.005-1.030)
[2020-03-14 20:59] VITALS: TEMP 98.3
[2020-03-14 21:00] VITALS: O2SAT 100
[2020-03-14 21:04] VITALS: BP 105/70
--- NOTE | 2020-03-17 13:04 | EKG ---
Test Date: 2020-03-14 Test Time: 18:32:09 Chief Design Branch: PORFIRIO MEASUREMENT RESULTS: Intervals: Rate: 84 NE: 148 QRSD: 70 QT: 352 QTc: 415 [place]: P: 78 NE: 148 QRS: 99 T: 77 INTERPRETIVE STATEMENTS: Normal sinus rhythm Electronically Signed On 03-17-20 13:04:06 CDT by Salinas Torrez
--- NOTE | 2020-03-19 14:48 | ER ---
Nurse's Notes [facility] Name: Reyna Negrete Age: 19 yrs Sex: Female : 2000 Arrival Date: 03/14/2020 Time: 16:18 Bed 15 Private MD: Diagnosis: Volume depletion, unspecified;Anxiety disorder, unspecified Presentation: 03/14 16:21 Chief complaint: Patient states: Fainting and dizzy spells continues for 3 months. ll1 States she has gotten checked at [facility], her thyroid was normal. B12 extremely low, takes B12 1000 mcg daily. Had vaginal delivery 4 months ago. States she felt this way even before she was . Coronavirus screen: Proceed with normal triage. Patient denies a cough. Patient denies shortness of breath or difficulty breathing. Patient denies measured and/or subjective temperature greater than 100.4F prior to today's visit. Patient denies travel on a cruise ship or to a country the [facility] currently lists as an affected area. Patient denies contact with known and/or suspected case of COVID-19. Ebola Screen: Patient denies travel to an Ebola-affected area in the 21 days before illness onset. Initial Sepsis Screen: Does the patient meet any 2 criteria? HR > 90 bpm. No. Patient's initial sepsis screen is negative. Does the patient have a suspected source of infection? No. Patient's initial sepsis screen is negative. Risk Assessment: Do you want to hurt yourself or someone else? Patient reports no desire to harm self or others. Onset of symptoms was December 15, 2019. 16:21 Method Of Arrival: Ambulatory ll1 16:21 Acuity: JOSE 4 ll1 Historical: - Allergies: 16:26 No Known Allergies; ll1 - Home Meds: 20:51 Iron CR Oral [Active]; - PMHx: 16:26 Head injury; Anxiety; Headaches; ll1 - PSHx: 16:26 vaginal delivery; ll1 - Immunization history:: Adult Immunizations up to date, Flu vaccine is up to date. - Social history:: Smoking status: Patient denies any tobacco usage or history of. Patient/guardian denies using alcohol, street drugs, tobacco products. Screenin:57 Abuse screen: Denies threats or abuse. Nutritional screening: No deficits noted. Tuberculosis screening: No symptoms or risk factors identified. Fall Risk None identified. Assessment: 17:55 General: Appears in no apparent distress. Behavior is calm, cooperative, Reports fatigue for 2-3 days. Pain: Denies pain. Neuro: Level of Consciousness is awake, alert, Oriented to person, place, time, situation, Reports dizziness, paresthesias in joão arms. Cardiovascular: Heart tones S1 S2 present Capillary refill < 3 seconds Patient's skin is warm and dry. Rhythm is sinus rhythm. Respiratory: Airway is patent Respiratory effort is even, unlabored, Respiratory pattern is regular, symmetrical, Breath sounds are clear. GI: No signs and/or symptoms were reported involving the gastrointestinal system. : No signs and/or symptoms were reported regarding the genitourinary system. EENT: No signs and/or symptoms were reported regarding the EENT system. Derm: Skin is intact, is healthy with good turgor. Vital Signs: 16:21 BP 121 / 78; Pulse 99; Resp 17; Temp 98.3; Pulse Ox 99% ; Weight 57.61 kg; Height 5 ft. ll1 3 in. (160.02 cm); Pain 0/10; 19:07 BP 100 / 70 Supine; Pulse 82; Resp 18; Pulse Ox 100% ; mw2 19:08 BP 108 / 74 Sitting; Pulse 83; Resp 19; Pulse Ox 100% ; mw2 19:09 BP 107 / 72 Standing; Pulse 88; Resp 23; Pulse Ox 100% ; mw2 20:00 BP 105 / 70; Pulse 84; Resp 16; Pulse Ox 100% ; ah 16:21 Body Mass Index 22.50 (57.61 kg, 160.02 cm) ll1 ED Course: 16:18 Patient arrived in ED. fj1 16:25 Triage completed. ll1 16:26 Arm band placed on Patient notified of wait time. ll1 17:36 Rachna Molina FNP-C is [facility]. snw 17:36 Bebo Padilla MD is Attending Physician. snw 17:47 Uyen Sanchez, RN is Primary Nurse. 19:01 EKG done, by ED staff, reviewed by Rachna POOLE. mh5 19:02 Patient has correct armband on for positive identification. Placed in gown. Bed in low mh5 position. Call light in reach. Warm blanket given. media monitor on. Pulse ox on. NIBP on. 19:20 Inserted saline lock: 20 gauge in right antecubital area, using aseptic technique. mw2 Blood collected. 20:49 No provider procedures requiring assistance completed. IV discontinued, intact, bleeding controlled, No redness/swelling at site. Pressure dressing applied. Administered Medications: 19:30 Drug: NS 0.9% 2000 ml Route: IV; Rate: 1000 ml; Site: right antecubital; 20:49 Follow up: Response: No adverse reaction; IV Status: Completed infusion Outcome: 20:33 Discharge ordered by . markie 20:48 Discharged to home ambulatory. 20:48 Condition: good 20:48 Discharge instructions given to patient, Instructed on discharge instructions, follow up and referral plans. Demonstrated understanding of instructions, follow-up care. 20:52 Patient left the ED. Signatures: Rachna Molina, GAS PLUMBER-C GAS PLUMBER-Sravani Frazier 5 Rosio Dexter mw2 Georgia Long RN RN Heber Ellis 1 Uyen Sanchez, RN RN Joel Ponce RN RN ll1
--- NOTE | 2020-03-19 14:48 | EDPHYS ---
Physician Documentation [facility] Name: Reyna Negrete Age: 19 yrs Sex: Female : 2000 Arrival Date: 03/14/2020 Time: 16:18 Bed 15 Private MD: ED Physician Bebo Padilla HPI: 03/14 18:22 This 19 yrs old Female presents to ER via Ambulatory with complaints of snw FAINTING SPELL, DIZZINESS, WORRIED ABOUT THYROIDS ACTING UP. 18:22 The patient presents with feeling faint, generalized weakness, pt denies ever fainting. snw Onset: The symptoms/episode began/occurred 4 month(s) ago. Context: occurred at home, just prior to the episode the patient experienced fatigue. Modifying factors: The symptoms are alleviated by time, the symptoms are aggravated by "freaking out". Associated signs and symptoms: Pertinent positives: fatigue, malaise, "I feel like something is wrong". Severity of symptoms: At their worst the symptoms were moderate in the emergency department the symptoms have improved. Patient's baseline: Neuro: alert and fully oriented, Motor: no deficits, Ambulation: walks without assistance, Speech: normal, The patient has a previous history of head injury. The patient has experienced similar episodes in the past, chronically. pt has been worked up multiple times in [place]. . anxious. Historical: - Allergies: 16:26 No Known Allergies; ll1 - Home Meds: 20:51 Iron CR Oral [Active]; ah - PMHx: 16:26 Head injury; Anxiety; Headaches; ll1 - PSHx: 16:26 vaginal delivery; ll1 - Immunization history:: Adult Immunizations up to date, Flu vaccine is up to date. - Social history:: Smoking status: Patient denies any tobacco usage or history of. Patient/guardian denies using alcohol, street drugs, tobacco products. ROS: 18:20 Eyes: Negative for injury, pain, redness, and discharge, ENT: Negative for injury, snw pain, and discharge, Neck: Negative for injury, pain, and swelling, Cardiovascular: Negative for chest pain, palpitations, and edema, Respiratory: Negative for shortness of breath, cough, wheezing, and pleuritic chest pain, Abdomen/GI: Negative for abdominal pain, nausea, vomiting, diarrhea, and constipation, Back: Negative for injury and pain, : Negative for injury, bleeding, discharge, and swelling, MS/Extremity: Negative for injury and deformity, Neuro: Negative for headache, weakness, numbness, tingling, and seizure, Psych: Negative for depression, anxiety, suicide ideation, homicidal ideation, and hallucinations. 18:20 Constitutional: Positive for body aches, fatigue, malaise. 18:20 Skin: Positive for hands turned blue and then loss of sensation. Pt states it went away after about an hour and a half. Exam: 18:19 Constitutional: This is a well developed, well nourished patient who is awake, alert, snw and in no acute distress. Head/Face: Normocephalic, atraumatic. Eyes: Pupils equal round and reactive to light, extra-ocular motions intact. Lids and lashes normal. Conjunctiva and sclera are non-icteric and not injected. Cornea within normal limits. Periorbital areas with no swelling, redness, or edema. ENT: Nares patent. No nasal discharge, no septal abnormalities noted. Tympanic membranes are normal and external auditory canals are clear. Oropharynx with no redness, swelling, or masses, exudates, or evidence of obstruction, uvula midline. Mucous membranes moist. Neck: Trachea midline, no thyromegaly or masses palpated, and no cervical lymphadenopathy. Supple, full range of motion without nuchal rigidity, or vertebral point tenderness. No Meningismus. Chest/axilla: Normal chest wall appearance and motion. Nontender with no deformity. No lesions are appreciated. Cardiovascular: Regular rate and rhythm with a normal S1 and S2. No gallops, murmurs, or rubs. Normal PMI, no JVD. No pulse deficits. Respiratory: Lungs have equal breath sounds bilaterally, clear to auscultation and percussion. No rales, rhonchi or wheezes noted. No increased work of breathing, no retractions or nasal flaring. Abdomen/GI: Soft, non-tender, with normal bowel sounds. No distension or tympany. No guarding or rebound. No evidence of tenderness throughout. Back: No spinal tenderness. No costovertebral tenderness. Full range of motion. Skin: Warm, dry with normal turgor. Normal color with no rashes, no lesions, and no evidence of cellulitis. MS/ Extremity: Pulses equal, no cyanosis. Neurovascular intact. Full, normal range of motion. Neuro: Awake and alert, GCS 15, oriented to person, place, time, and situation. Cranial nerves II-XII grossly intact. Motor strength 5/5 in all extremities. Sensory grossly intact. Cerebellar exam normal. Normal gait. Psych: Awake, alert, with orientation to person, place and time. Behavior, mood, and affect are within normal limits. pt anxious Vital Signs: 16:21 BP 121 / 78; Pulse 99; Resp 17; Temp 98.3; Pulse Ox 99% ; Weight 57.61 kg; Height 5 ft. ll1 3 in. (160.02 cm); Pain 0/10; 19:07 BP 100 / 70 Supine; Pulse 82; Resp 18; Pulse Ox 100% ; mw2 19:08 BP 108 / 74 Sitting; Pulse 83; Resp 19; Pulse Ox 100% ; mw2 19:09 BP 107 / 72 Standing; Pulse 88; Resp 23; Pulse Ox 100% ; mw2 20:00 BP 105 / 70; Pulse 84; Resp 16; Pulse Ox 100% ; ah 16:21 Body Mass Index 22.50 (57.61 kg, 160.02 cm) ll1 MDM: 18:12 Patient medically screened. snw 20:34 Data reviewed: vital signs, nurses notes. Data interpreted: Pulse oximetry: on room air snw is 100 %. Interpretation: normal. Counseling: I had a detailed discussion with the patient and/or guardian regarding: the historical points, exam findings, and any diagnostic results supporting the discharge/admit diagnosis, lab results, the need for outpatient follow up, to return to the emergency department if symptoms worsen or persist or if there are any questions or concerns that arise at home. Special discussion: Based on the history and exam findings, there is no indication for further emergent testing or inpatient evaluation. I discussed with the patient/guardian the need to see the primary care provider for further evaluation of the symptoms. 03/14 17:57 Order name: Urine Microscopic Only; Complete Time: 20:33 snw 03/14 19:06 Order name: Urine Dipstick--Ancillary (enter results); Complete Time: 20:33 em1 03/14 17:57 Order name: Urine Test (obtain specimen); Complete Time: 19:22 snw 03/14 17:57 Order name: EKG; Complete Time: 17:58 snw 03/14 19:06 Order name: Urine --Ancillary (enter results); Complete Time: 20:33 em1 03/14 17:57 Order name: Urine Dipstick-Ancillary (obtain specimen); Complete Time: 19:23 snw 03/14 17:57 Order name: EKG - Nurse/Tech; Complete Time: 19:01 snw 03/14 18:18 Order name: Orthostatics; Complete Time: 19:22 snw Administered Medications: 19:30 Drug: NS 0.9% 2000 ml Route: IV; Rate: 1000 ml; Site: right antecubital; vc 20:49 Follow up: Response: No adverse reaction; IV Status: Completed infusion Disposition: 03/15 09:52 Co-signature as Attending Physician, Bebo Padilla MD I agree with the assessment and kdr plan of care. Disposition: 03/14/20 20:33 Discharged to Home. Impression: Volume depletion, unspecified, Anxiety disorder, unspecified. - Condition is Stable. - Discharge Instructions: Dehydration, Adult, Near-Syncope, Generalized Anxiety Disorder, Rehydration, Adult. - Medication Reconciliation Form, Thank You Letter, Antibiotic Education, Prescription Opioid Use form. - Follow up: Emergency Department; When: As needed; Reason: Worsening of condition. Follow up: Private Physician; When: 2 - 3 days; Reason: Recheck today's complaints, Continuance of care, Re-evaluation by your physician. Signatures: Dispatcher [employer] [facility] Bebo Padilla MD MD kdr Therrien, Shelly, SERVICE REPRESENTATIVE-C SERVICE REPRESENTATIVE-Cs[facility] Georgia Long RN RN vc Harris, Amy RN RN Joel Ramirez RN RN ll1 Corrections: (The following items were deleted from the chart) 03/14 20:52 20:33 03/14/2020 20:33 Discharged to Home. Impression: Volume depletion, unspecified; ah Anxiety disorder, unspecified. Condition is Stable. Discharge Instructions: Dehydration, Adult, Near-Syncope, Generalized Anxiety Disorder, Rehydration, Adult. Forms are Medication Reconciliation Form, Thank You Letter, Antibiotic Education, Prescription Opioid Use. Follow up: Emergency Department; When: As needed; Reason: Worsening of condition. Follow up: Private Physician; When: 2 - 3 days; Reason: Recheck today's complaints, Continuance of care, Re-evaluation by your physician. snw
== END 2020-03-14 20:52 | disposition home or self-care (01) ==
LOC: ER 16:12
DX: E86.9 Volume depletion, unspecified (principal); F41.9 Anxiety disorder, unspecified
CPT/HCPCS: 93005; 81025; 96360; 99284; J7030; 81003; 81015